=== PATIENT | female | born 1945 | race Caucasian/White ===

== ENCOUNTER 2017-01-02 07:16 | Day surgery (SDC) | payer OTHER, MEDICARE ==
[2017-01-02] MEDS: PHENYLEPHRINE 2.5% OPHTH SOLN 15 ML BOTTLE ONE ×5 (07:50→08:10)
[2017-01-02] MEDS: FLURBIPROFEN 0.03% OPHTH SOLN 2.5 ML BOTTLE ONE ×5 (07:50→08:10)
[2017-01-02] MEDS: CYCLOPENTOLATE HCL 1% OPHTH SOLN 2 ML BOTTLE ONE ×5 (07:50→08:10)
[2017-01-02] MEDS: TROPICAMIDE 1% OPHTH SOLN 15 ML BOTTLE ONE ×5 (07:50→08:10)
[2017-01-02] MEDS: GENTAMICIN SULFATE 0.3% OPHTHALMIC (EYE DROPS) 5ML BOTTLE ONE ×5 (07:50→08:10)
[2017-01-02 07:52] VITALS: BMI 28.8
[2017-01-02] MEDS ORDERED: TROPICAMIDE 1% OPHTH SOLN 15 ML BOTTLE OD SCH (08:00)
[2017-01-02] MEDS ORDERED: GENTAMICIN SULFATE 0.3% OPHTHALMIC (EYE DROPS) 5ML BOTTLE OD SCH (08:00)
[2017-01-02] MEDS ORDERED: PHENYLEPHRINE 2.5% OPHTH SOLN 15 ML BOTTLE OD SCH (08:00)
[2017-01-02] MEDS ORDERED: CYCLOPENTOLATE HCL 1% OPHTH SOLN 2 ML BOTTLE OD SCH (08:00)
[2017-01-02] MEDS ORDERED: FLURBIPROFEN 0.03% OPHTH SOLN 2.5 ML BOTTLE OD SCH (08:00)
[2017-01-02] MEDS ORDERED: MIDAZOLAM HCL 2 MG/2 ML SINGLE DOSE VIAL ONE (08:55)
[2017-01-02] MEDS ORDERED: ACETAMINOPHEN 325 MG TABLET (FP) PO PRN (10:11)
[2017-01-02 10:25] VITALS: BP 130/75; PULSE 74; TEMP 98.1
--- NOTE | 2017-01-02 11:08 | OP ---
DATE OF OPERATION: 01/02/2017 PREOPERATIVE DIAGNOSIS: Cataract, right eye. POSTOPERATIVE DIAGNOSIS: Cataract, right eye. PROCEDURE: Cataract extraction via phacoemulsification with insertion of posterior chamber lens implant, right eye. SURGEON: Thiago Oswald MD FURNISHINGS CONSERVATOR: Key Gonzalez MD ANESTHESIA: Regional with sedation. ESTIMATED BLOOD LOSS: Less than 1 mL. COMPLICATIONS: None. SPECIMENS: None. DESCRIPTION OF PROCEDURE: The patient was identified in the holding area. After all risks, benefits, and alternatives were explained to the patient, the right eye was marked with a marking pen. The patient then entered the operating room on an eye stretcher. After a formal timeout was performed, a 3-mL injection of equal parts of 2% lidocaine with epinephrine and 0.5% Marcaine was given around the right eye. The right eye was then prepped and draped in the usual sterile fashion. An eyelid speculum was placed beneath the eyelids of the right eye. A superotemporal paracentesis incision was then created using a 15-degree blade. Viscoelastic was injected into the anterior chamber. A 2.4-mm keratome blade was then used to make an inferotemporal incision. A 360-degree, continuous curvilinear capsulorrhexis was then created using bent cystotome and Utrata forceps. Hydrodissection was performed with balanced saline solution on a cannula. Phacoemulsification was introduced to disassemble and remove the nucleus in its entirety. Irrigation/aspiration was then used to remove any remaining cortical material from the eye. The capsular bag was then refilled using Viscoelastic. An Deniz model SN60WF with a power of 14.0 diopters, serial number [id number], was inspected and found to be defect free and injected into the capsular bag. Irrigation/aspiration was then used to remove any remaining viscoelastic from the eye. The anterior chamber was then reformed using balanced saline solution. Intracameral injections of Miochol and Miostat were then given, and the pupil came down and was round. All wounds were hydrated with balanced saline solution and noted to be watertight. The eye had an adequate pressure. There was a red reflex present. The anterior chamber was deep, and the lens was perfectly centered in the capsular bag. Topical eye drops and ointment, which were both antibiotics, were administered to the right eye. The eyelid speculum was removed from the right eye. The right eye was patched and shielded. The patient tolerated the procedure well and left the operating room in stable condition and will follow up in the eye clinic tomorrow morning at 9:00. THIAGO OSWALD M.D. [id number]
== END 2017-01-02 11:45 | disposition home or self-care (01) ==
LOC: FASU 07:16
PROVIDERS: ATTEND Ophthalmology
PROC: 08RJ3JZ Replacement of Right Lens with Synthetic Substitute, Percutaneous Approach (ICD-10-PCS; principal; 2017-01-02 09:26)
DX: H26.8 Other specified cataract (principal)

== ENCOUNTER 2018-12-27 16:35 | Emergency (ER) | payer OTHER, MEDICARE ==
[2018-12-27 16:51] VITALS: BP 170/103; PULSE 80; TEMP 99.1; BMI 31.3
--- NOTE | 2018-12-27 17:08 | PDOC ---
Documentation entered by Geoff Crowley SCRIBE, acting as scribe for Kanchan Ely MD. Kanchan Ely MD: This documentation has been prepared by the Keo lopez Daniel, SCRIBE, under my direction and personally reviewed by me in its entirety. I confirm that the documentation accurately reflects all work, treatment, procedures, and medical decision making performed by me. History of Present Illness - General Chief Complaint: Foreign Body (FB) Stated Complaint: FB History Source: Patient Exam Limitations: No Limitations - History of Present Illness Initial Comments: 12/27/18 16:56 The patient is a 73 year old female with a past medical history of afib (xarelto ), HTN, and diabetes here today for evaluation of possible preparation H wipe stuck in rectum. The patient reports that she was using a preparation wipe today this am. and believes that it got stuck in her rectum. She reports having bowel movements since then and states that she has not seen the wipe in the toilet. She denies having hemorrhoids but states that she notices blood on the toilet paper after wiping. she was using the wipe to stop bleeding and clean areashe has been having blood with stools for for several months, her cardiologsit is aware. she has never had a colonoscopy in the past, does not have a planting machine crewman. She denies any pain. pcp dr Soriano Allergies: NKA 12/27/18 17:01 12/27/18 17:08 Past History - Past Medical History Allergies/Adverse Reactions: Allergies Allergy/AdvReac Type Severity Reaction Status Date / Time No Known Allergies Allergy Verified 12/27/18 16:36 Home Medications: Ambulatory Orders Aspirin [ASA -] 81 mg PO DAILY 03/22/16 Atorvastatin Ca [Lipitor] 80 mg PO DAILY 03/22/16 Diltiazem HCl [Diltiazem 24Hr Cd] 240 mg PO HS 03/22/16 Rivaroxaban [Xarelto -] 20 mg PO DAILY 03/22/16 Sitagliptin Phosphate [Januvia] 50 mg PO DAILY 03/22/16 metFORMIN HCL [Metformin HCl] 850 mg PO TID 03/22/16 Anemia: No Asthma: No Cancer: No Cardiac Disorders: Yes (stent,a-fib) CVA: No COPD: No CHF: No Dementia: No Diabetes: Yes GI Disorders: No Disorders: No HTN: Yes Hypercholesterolemia: Yes Liver Disease: No Seizures: No Thyroid Disease: No - Surgical History Abdominal Surgery: Yes Appendectomy: No Cardiac Surgery: Yes (stent placement) Cholecystectomy: No Lung Surgery: No Neurologic Surgery: No Orthopedic Surgery: No - Suicide/Smoking/Psychosocial Hx Smoking History: Former smoker Have you smoked in the past 12 months: No If you are a former smoker, when did you quit?: 1995 Hx Alcohol Use: Yes (rare) Drug/Substance Use Hx: No Substance Use Type: Alcohol Hx Substance Use Treatment: No Review of Systems - Review of Systems Able to Perform ROS?: Yes Comments:: 12/27/18 16:56 GENERAL/CONSTITUTIONAL: No fever or chills. No weakness. HEAD, EYES, EARS, NOSE AND THROAT: No change in vision. No ear pain or discharge. No sore throat. CARDIOVASCULAR: No chest pain or shortness of breath. RESPIRATORY: No cough, wheezing, or hemoptysis. GASTROINTESTINAL: No nausea, vomiting, diarrhea or constipation. GENITOURINARY: No dysuria, frequency, or change in urination. MUSCULOSKELETAL: No joint or muscle swelling or pain. No neck or back pain. SKIN: No rash NEUROLOGIC: No headache, vertigo, loss of consciousness, or change in strength/ sensation. ENDOCRINE: No increased thirst. No abnormal weight change. HEMATOLOGIC/LYMPHATIC: No anemia take blood thinners. ALLERGIC/IMMUNOLOGIC: No hives or skin allergy. 12/27/18 17:03 *Physical Exam - Vital Signs Last Vital Signs Temp Pulse Resp BP Pulse Ox 99.1 F 80 22 H 170/103 H 99 12/27/18 16:36 12/27/18 16:36 12/27/18 16:36 12/27/18 16:36 12/27/18 16:36 - Physical Exam Comments: 12/27/18 16:57 GENERAL: Awake, alert, and fully oriented, in no acute distress HEAD: No signs of trauma LUNGS: Breath sounds equal, clear to auscultation bilaterally. No wheezes, and no crackles HEART: Regular rate and rhythm, normal S1 and S2, no murmurs, rubs or gallops ABDOMEN: Soft, nontender, normoactive bowel sounds. No guarding, no rebound. No masses rectal: noted internal hemorrhoids, some active bleeding on rectal exam . protruding. soft nonthrombosed. no palp foreign body on REGINALDO ext wwp nuero alert oriented x 3. 12/27/18 17:04 Medical Decision Making - Medical Decision Making 12/27/18 17:05 73 yo F with hemorrhoids, on xarelto here wtih c/o wipe stuck in rectum. anoscopy performed using small speculum. no visuzlied wipe or foreign body. will dw/ GI. jocelyn observant management and fu. *DC/Admit/Observation/Transfer Diagnosis at time of Disposition: Hemorrhoids, Rectal foreign body - Discharge Dispostion Disposition: HOME Condition at time of disposition: Improved Decision to Admit order: No - Referrals Referrals: Diogo Lafleur MD [Staff Physician] - - Patient Instructions Printed Discharge Instructions: Hemorrhoids (Alternative Therapy) Additional Instructions: you need to follow up with planting machine crewman within one week. see referral information for Dr Lafleur. call to schedule. return for fever, pain severe bleeding or any concerns. you should also follow up with you primary doctor. - Post Discharge Activity
== END 2018-12-27 17:25 | disposition home or self-care (01) ==
LOC: FER 16:35
DX: Z87.891 Personal history of nicotine dependence (principal); Z95.5 Presence of coronary angioplasty implant and graft; I10 Essential (primary) hypertension; E11.9 Type 2 diabetes mellitus without complications; E78.00 Pure hypercholesterolemia, unspecified; I48.91 Unspecified atrial fibrillation
CPT/HCPCS: 99281-25